=== PATIENT | female | born 1975 | race Caucasian/White ===

== ENCOUNTER 2021-02-23 12:01 | Day surgery (SDC) | payer BC, OTHER ==
[~2021-02-23] VITALS: Ht 170.2 cm; Wt 63.5 kg
--- NOTE | ~2021-02-23 | O ---
[facility] [place] [address] OPERATIVE REPORT Name: LEANN TERRAZAS Room #: 150-1 [facility] M.R.#: [id number] Admission: 02/23/21 Attend Phys: Brittani Mckeon, Discharge: Date of : 75 Report #: [id number] THIS REPORT FOR: cc: SHAY - Family physician unknown FAM - Family physician unknown Brittani Mckeon MD ~ DATE OF SERVICE: 02/23/2021 PREOPERATIVE DIAGNOSIS: Right thumb carpometacarpal arthritis. POSTOPERATIVE DIAGNOSIS: Right thumb carpometacarpal arthritis. PROCEDURES PERFORMED: Right thumb carpometacarpal arthroplasty, trapezium excision with internal brace and autograft tendon. SURGEON: Brittani Mckeon MD TYPE OF ANESTHESIA: General mask anesthesia. ESTIMATED BLOOD LOSS: Minimal. TOURNIQUET TIME: 51 minutes. COMPLICATIONS: None. CONDITION: Stable. DISPOSITION: To recovery room. INDICATIONS: The patient is a 46-year-old female with the above-mentioned diagnosis. She elects for operative treatment. The risks, benefits, alternatives, complications were discussed including but not limited to infection, damage to vessels or nerves, incomplete relief or worsening of any symptoms. Informed consent was obtained, the correct extremity was identified and labeled myself after verbal confirmation of the patient as well as visual confirmation and signed informed consent. DESCRIPTION OF PROCEDURE: The patient was brought back to the operating room and placed on the operating table in the supine position. She received preoperative antibiotics. Tourniquet was placed over padding. The patient's right lower extremity was sterilely prepped and draped in the usual fashion. A timeout was taken to verify correct patient, operative procedure, operative site, all concurred. The arm was elevated, exsanguinated and the tourniquet inflated. Next, an incision was made over the first dorsal compartment from the CMC joint all the way to the radial styloid. Dissection was carried down through subcutaneous tissue with tenotomy scissors. The dorsal aspect of the [address] [address] OPERATIVE REPORT Name: LEANN TERRAZAS RICHELLE Room #: 150-1 [facility] M.R.#: [id number] Admission: 02/23/21 Attend Phys: Brittani Mckeon, Discharge: Date of : 75 Report #: [id number] first dorsal compartment was identified and incised. The interval between the EPB and APL tendons was then dissected through. The radial artery was identified, mobilized, and retracted dorsally. Next, the capsule was incised from the thumb CMC joint. The trapezium was then completely excised with combination of an osteotome, rongeur and curettes. The FCR tendon looked to be in excellent condition. An extensive examination was undertaken to remove any loose bodies or any bone fragments. The area was thoroughly irrigated. Next, approximately a 4-5 cm x 2 mm strip of the APL tendon was excised. It was placed on the back table for later use. Next, guidewires were placed in the radial aspect of the thumb metacarpal as well as the radial aspect of the index metacarpal base. This was checked under fluoroscopy and found to be in appropriate position. Once it was found to be appropriate, using the drill guide and stop, holes were drilled. The guide was removed. The area was thoroughly irrigated. Next, the Arthrex internal brace labral tape with the tendon graft was placed into the thumb metacarpal, it had excellent fixation. Next, with the thumb in maximal adduction and mild traction, the graft and internal brace was placed into the index metacarpal, this had excellent position, excellent tension. AP, lateral and then lateral stress views showed good position of the thumb metacarpal in relation to the index metacarpal and no impingement on the scaphoid with axial load. A watertight capsular closure was then performed with 3-0 Ethibond suture. The deep subcutaneous tissue was closed with 3-0 Monocryl suture. The superficial was closed with 4-0 Monocryl suture and then Steri-Strips. After infiltrating subcutaneous tissue with approximately 5 mL of 0.25% Marcaine, she was placed in a bulky dressing and a thumb spica splint. All fingers were pink with brisk capillary refill at the conclusion of the case. All sponge and needle counts were correct. The patient was transferred to postoperative recovery room in stable condition. By: [id number] Brittani Mckeon MD /nt
[~2021-02-23 12:01] MED LIST: ADDERALL 20 MG20 M1 PO; LAMOTRIGINE100 MG PO; SERTRALINE HCL100 MG PO; SUNOSI150 MG PO; SYNTHROID75 MC1 PO
[2021-02-23 14:17] VITALS: BP 111/70
[2021-02-23 16:54] VITALS: BP 111/70
== END 2021-02-23 17:50 | disposition home or self-care (01) ==
LOC: OR 12:01 → TBA 12:01 → OR 12:08 → TBA 12:11 → OR 12:12
PROVIDERS: ATTEND Orthopaedic Surgery Hand Surgery
DX: M18.11 Unilateral primary osteoarthritis of first carpometacarpal joint, right hand (principal); E03.9 Hypothyroidism, unspecified; F32.9 Major depressive disorder, single episode, unspecified; F41.9 Anxiety disorder, unspecified; Z20.822 Contact with and (suspected) exposure to COVID-19; Z98.890 Other specified postprocedural states; Z79.899 Other long term (current) drug therapy; Z88.8 Allergy status to other drugs, medicaments and biological substances
CPT/HCPCS: 50010; 50101; 50386; 56525; 56526; 56527; 57006; 57091; 57178; 57481; 62110; 62900; 70005